=== PATIENT | female | born 1955 | race American Indian/Alaskan Native ===

== ENCOUNTER 2017-06-22 12:11 | Day surgery (SDC) | payer OTHER ==
[2017-06-03 08:32] VITALS: BMI 28.3
--- NOTE | 2017-06-22 12:56 | CP.SDSHP ---
Same Day Surgery H & P - History Proposed Procedure: Right shoulder arthroscopy Pre-Op Diagnosis: Right shoulder RC tear - Allergies Allergies: Allergies No Known Allergies Allergy (Verified 09/10/15 10:24) - Impression Impression: full H&P and clearance on chart. [employer] ALL PURPOSE CLERK patient report reviewed. Last CDS tramadol 02/2017. Patient counseled on the risks of addiction, physical or psychological dependence, and overdose associated with opioid drugs and the danger of taking opioid drugs with alcohol and other central nervous system depressants, and cautioned patient on storage and disposal. Pt. Evaluated Today:Candidate for Anesthesia & Procedure: Yes - Date & Time Date: 06/22/17 Time: 12:56 Short Stay Discharge - Short Stay Discharge Admitting Diagnosis/Reason for Visit: INCOMPLETE ROTATR-CUFF TEAR/RUPTR OF R SHOULDER, N Disposition: HOME/ ROUTINE Past Patient History - Past Medical History & Family History Past Medical History?: Yes - Past Social History Smoking Status: Former Smoker - CARDIAC Hx Cardiac Disorders: Yes Hx Hypercholesterolemia: Yes - PULMONARY Hx Respiratory Disorders: No - NEUROLOGICAL Hx Neurological Disorder: No - HEENT Hx HEENT Problems: No - RENAL Hx Chronic Kidney Disease: No - ENDOCRINE/METABOLIC Hx Endocrine Disorders: No - HEMATOLOGICAL/ONCOLOGICAL Hx Blood Disorders: Yes Hx Blood Transfusions: No Hx Human Immunodeficiency Virus (HIV): Yes Other/Comment: HX GENITAL HERPES TREATED AND IN REMISSION - INTEGUMENTARY Hx Dermatological Problems: No - MUSCULOSKELETAL/RHEUMATOLOGICAL Hx Musculoskeletal Disorders: Yes Hx Arthritis: Yes Hx Degenerative Joint Disease: Yes Hx Falls: No Hx Osteoarthritis: Yes Hx Unsteady Gait: Yes (USING WALKER "FROZEN" LEFT KNEE) Other/Comment: HX: ROTATOR CUFF TEAR RIGHT - GASTROINTESTINAL Hx Gastrointestinal Disorders: Yes Hx Gastroesophageal Reflux: Yes - GENITOURINARY/GYNECOLOGICAL Hx Genitourinary Disorders: No Other/Comment: GENITAL HERPES - PSYCHIATRIC Hx Psychophysiologic Disorder: No Hx Substance Use: No - SURGICAL HISTORY Hx Surgeries: Yes Hx Arthroscopy: Yes (RIGHT KNEE) Hx Dilation and Curettage: Yes (TOP) Hx Joint Replacement: Yes (LEFT KNEE; RIGHT KNEE(11/06/16)) Hx Orthopedic Surgery: Yes Other/Comment: 2 SURGERIES URETHRA FOR REMOVAL OF CYSTS - ANESTHESIA Hx Anesthesia: Yes Hx Anesthesia Reactions: No Hx Malignant Hyperthermia: No Has any member of the family had a problem w/ anesthesia?: No
[2017-06-22] MEDS ORDERED: ceFAZolin IV 2 gm in Dextrose 1 GM/50 ML BAG IVPB ONE (13:38)
[2017-06-22] MEDS ORDERED: Bacitracin Ointment 30 GM TUBE ONE (13:40)
[2017-06-22] MEDS ORDERED: Lidocaine 1% Inj (20ml) ONE ×2 (13:40→13:46)
[2017-06-22] MEDS ORDERED: Bupivacaine 0.5%/Epi 1:200,000 (10 ML SOL) ONE (13:40)
[2017-06-22] MEDS ORDERED: MethylPREDNISolone Depo 40 mg/ml Inj ONE (13:40)
[2017-06-22] MEDS ORDERED: Lactated Ringer's 1,000 ML IV ONE ×2 (13:45→15:52)
[2017-06-22] MEDS ORDERED: Succinylcholine Chloride 20 mg/ml Syr (5 ml) IV ONE (13:47)
[2017-06-22] MEDS ORDERED: Propofol 10 mg/ml Inj (20 ML) ONE (13:47)
[2017-06-22] MEDS ORDERED: Midazolam 2 MG/2 ML VIAL ONE (13:47)
[2017-06-22] MEDS ORDERED: Rocuronium 10 mg/ml (10 ml) ONE (13:47)
[2017-06-22] MEDS ORDERED: Neostigmine Methylsulfate 3mg/3ml Syringe IV ONE (15:03)
[2017-06-22] MEDS ORDERED: Lidocaine Hydrochloride 5 ML INJ ONE (15:38)
[2017-06-22] MEDS ORDERED: Morphine 4 MG/ML VIAL ONE ×2 (15:39→15:51)
[2017-06-22] MEDS ORDERED: HYDROmorphone 0.5 mg/0.5 ml ISec IVP PRN (15:56)
[2017-06-22] MEDS ORDERED: Oxycodone/Acetaminophen 5/325 mg Tab PO PRN (16:00)
--- NOTE | 2017-06-22 16:00 | PCM.SURG1 ---
Surgeon's Initial Post Op Note - Surgeon's Notes Surgeon: Kenia Blanco MD Electroplating Sales Representative: Tobias Raya PA-C Type of Anesthesia: General Endo Anesthesia Administered By: Dr. Whitt Pre-Operative Diagnosis: Right shoulder post traumatic derangement Operative Findings: same Post-Operative Diagnosis: same Operation Performed: 1. Right shoulder arthroscopic labral repair SLAP. 2. Arthroscopic intraarticular biceps tenodesis. 3. Subacromial decompression. 4. Distal claviculectomy. 5. partial synovectomy Specimen/Specimens Removed: none Estimated Blood Loss: EBL {In ML}: 5 Blood Products Given: N/A Drains Used: No Drains Post-Op Condition: Fair Date of Surgery/Procedure: 06/22/17 Time of Surgery/Procedure: 16:00
[2017-06-22] MEDS ORDERED: Bupivacaine 0.5% Inj(30mL) ONE (16:16)
[2017-06-22] MEDS ORDERED: Lactated Ringer's 500 ML IV ONE (16:30)
--- NOTE | 2017-06-22 16:41 | PCM.ANESB1 ---
Interscalene Block - Brachial Plexus Date of Procedure: 06/22/17 Anesthesiologist: Odell Pre-Procedure Diagnosis: right shoulder labrum tear Post-Procedure Diagnosis: right shoulder labrum tear Procedure Performed: Interscalene Block of Brachial Plexus Right - Procedure Interscalene Block of Brachial Plexus: This procedure was explained to the patient that it is for post-operative pain management. Consent was obtained after a thorough discussion with the patient regarding the benefits and possible complications of local anesthetic block of the Brachial Plexus at the Interscalene area. The patient was brought to the Operating Room and standard monitors were applied. Time out was held with the circulating nurse to confirm the correct surgery and appropriate block. After applying Oxygen by nasal cannula and administering IV Sedation, the patient's head was gently rotated away from the right operative shoulder and the anterior scalene groove was carefully palpated. The ultrasound transducer was then applied to the skin in the transverse plane and the brachial plexus was visualized lateral to the carotid artery and in between the anterior and middle scalene muscles. After identification,the anterior lateral portion of the neck was prepped with chloraprep solution and 2mL of Lidocaine 1% was injected subcutaneously for topical analgesia. At this point, a # 22 gauge Stimuplex 2 inches insulated needle was inserted into the interscalene groove and directed in a caudal and midline direction. The needle was inserted lateral to the ultrasound transducer in-plane towards the brachial plexus in a [id number] direction. Needle advancement was performed carefully under direct ultrasound visualization. After repeated negative aspiration, 5cc of 0.5%Bupivacaie were injected and this was followed with 15cc of 0.5% Bupivacaine. Negative intermittent aspiration. Under ultrasound guidance the local anesthetics were observed surrounding the roots of the brachial plexus. The needle was removed intact and sterile dressing was applied. The patient had stable vital signs, was conscious and in no apparent distress. The patient tolerated the interscalene block of the bracheal plexus well with stable vital signs.
[2017-06-22 17:43] VITALS: BP 105/84; PULSE 63; RESP 18; TEMP 97.8; O2SAT 100
--- NOTE | 2017-06-23 20:38 | OP ---
PROCEDURE DATE: 06/22/2017 PREOPERATIVE DIAGNOSIS: Internal derangement of the right shoulder. POSTOPERATIVE DIAGNOSES: 1. Tear of the glenoid labrum extending anterior to posterior to the root of the biceps tendon. 2. Biceps tendon anchor avulsion. 3. Acromioclavicular joint arthropathy. 4. Subacromial impingement. 5. Adhesions and bursitis in the subacromial space. OPERATIVE PROCEDURE: 1. Arthroscopic repair of labrum/SLAP lesion, right shoulder. 2. Arthroscopic partial distal claviculectomy to include the distal 1 cm of the clavicle and the articular surface. 3. Arthroscopic biceps tenodesis. 4. Partial acromioplasty. 5. Arthroscopic debridement subacromial space, lysis of adhesions, and bursectomy. SURGEON: Carlos Blanco MD COAL CHUTE WORKER: Jaleel Garner PA-C SECOND NURSING UNIT COORDINATOR: EVENS Weeks TYPE OF ANESTHESIA: General endotracheal anesthesia and regional anesthesia. ANESTHESIA ADMINISTERED BY: Regis Whitt MD COMPLICATIONS: None. DRAINS: None. OPERATIVE INDICATIONS: Nallely Hernandez is a woman well known to my practice. She presents with pain and restricted range of motion of the right shoulder. The right shoulder is the involved shoulder. The patient has failed conservative management consisting of intraarticular injection, activity modification, and therapy. Pros, cons, risks, and benefits of the surgery thoroughly discussed, possibility of mechanical failure, infection, thromboembolic disease, secondary or tertiary surgery was discussed. The patient can no longer withstand the discomfort. After the satisfactory induction of the anesthetic, after having identified the site, side and procedure, and a clinical pause/timeout, after having obtained informed consent, thoroughly discussing the pros, cons, risks and benefits, possibility of mechanical failure, infection, nerve injury, stiffness, secondary or tertiary surgery, the patient was identified as Nallely Hernandez, in a modified edwards chair position, the right upper extremity was prepped and re-draped in the usual fashion for upper extremity surgery. The shoulder positioner was employed. After sterilely prepping and draping the topographic anatomy, the shoulder was marked, the spine and the scapula, lateral aspect of the acromion and coracoid process. This having been accomplished, the joint was inflated with 10 mL 1% lidocaine without epinephrine. The posterior portal was accomplished with using #11 blade followed by spreading, followed by suction with a blunt trocar. Great care was taken to staying lateral to the coracoid process. Triangulation was accomplished using an 18 gauge spinal needle followed by #11 blade, followed by spreading. With the arthroscope posteriorly, the Wissinger jose l is placed anteriorly, lateral to the coracoid process. Cannula was introduced. With the arthroscope posteriorly, thorough debridement of the glenohumeral joint was accomplished. There was found to have a subchondral damage and a tear of the glenoid labrum, which was displaced extending from anteriorly to approximately the 3 o'clock position and with a displaced biceps tendon anchor. With the arthroscope posteriorly, posterior lateral portal was accomplished using an 18 gauge spinal needle followed by #11 blade, followed by spreading, followed by introduction of the straight hemostat. The glenoid rim is debrided using a combination of 3.4 mm Dyonics suction punch and the arthroscopic shaver grasp. This having been accomplished, the initial labrum tear was gathered using the Lasso by Arthrex. The Nitinol wire was taken out posteriorly, the braided fibre braid was placed and taken out anteriorly. Drilling was accomplished at approximately 1 o'clock position followed by loading of the PushLock anchor. The PushLock anchor was introduced. The fixation was found to be excellent. Attention was then turned to the biceps tendon. The biceps tendon was found to be unstable and avulsed. With the arthroscope posteriorly, the Lasso was placed down to the root of the biceps tendon to offer biceps tenodesis intra-articularly. The Nitinol wire was placed posteriorly. The fibre braid was placed out anteriorly. This having been accomplished, drilling was accomplished at the 12 o'clock position. The anchor was loaded. The PushLock anchor was introduced. The biceps aintraarticular tenodesis was accomplished. The third Nitinol wire is placed around the anterior aspect of the labrum. The Nitinol wire was brought up posteriorly. The Nitinol wire was loaded, the fibre braid was loaded. Drilling was accomplished at the 3 o'clock position. The anchor was loaded and impacted. The position was found to be excellent. This having been accomplished with the arthroscope posteriorly, the interval between the labrum and the glenoid was repaired. Attention was now turned to the subacromial space. A fourth portal was accomplished laterally using an 18 gauge spinal needle followed by #11 blade, followed by spreading with the arthroscope posteriorly. Thorough debridement and lysis of adhesions with partial bursectomy in the subacromial space was accomplished. There was found to be evidence of adhesions, inflammation, and the bursitis of the subacromial space. With the arthroscope posteriorly using a combination of the shaver and the wand, a subacromial resection was accomplished of the bursa and adhesions. This having been accomplished, with the arthroscope posteriorly, there was found to be evidence of AC joint arthropathy. The arthroscope was moved posterolaterally and the bur was placed laterally and a partial distal claviculectomy was accomplished. The bur was brought anteriorly as well and a partial distal claviculectomy was accomplished at the distal 1 cm of the clavicle to include the articular surface. A partial acromioplasty was accomplished as well. With the arthroscope posteriorly and posterolaterally, a partial acromioplasty was accomplished using the arthroscopic bur. There was found to be no evidence of thuy rotator cuff tear. There was debridement of the AC joint capsule as well as the partial distal claviculectomy. Partial acromioplasty having been accomplished, the wound was thoroughly irrigated. Closure was in layers with interrupted Vicryl and nylon. Intraarticular injection was offered. Compression dressings, shoulder immobilizer was applied. The patient was transferred from the operating table to a stretcher, having tolerated the procedure well. Carlos Blanco MD
== END 2017-06-22 17:46 | disposition home or self-care (01) ==
LOC: C.SDS 12:11
PROVIDERS: ATTEND Orthopaedic Surgery
DX: M75.111 Incomplete rotator cuff tear or rupture of right shoulder, not specified as traumatic (principal); S43.431D Superior glenoid labrum lesion of right shoulder, subsequent encounter; M75.51 Bursitis of right shoulder; M19.111 Post-traumatic osteoarthritis, right shoulder
CPT/HCPCS: 29824; 29826; 29828; J0171; J0690; J1100; J1170; J2001; J2250; J2270; J2405; J2704; J2710; J3010; J7120